=== PATIENT | male | born 1955 | race Caucasian/White ===

== ENCOUNTER 2018-10-21 08:38 | Outpatient (REF) | payer BC, SELFPAY ==
[2018-10-23 12:21] LABS: Lyme Ab w Rflx to Lyme Confirm Negative
== END 2018-10-21 08:58 ==
LOC: NCHCN 08:38
PROVIDERS: Visit Provider Nurse Practitioner Family
DX: A93.8 Other specified arthropod-borne viral fevers (principal)
CPT/HCPCS: 86618

== ENCOUNTER 2019-07-17 16:27 | Outpatient (REF) | payer BC, SELFPAY ==
[2019-07-17 19:13] LABS: Anion Gap 9.4 mmol/L (3-11); BUN 24 mg/dL (7-18); CO2 25.6 mmol/L (21.0-32.0); CREATININE 1.18 mg/dL (0.70-1.30); Calcium 8.7 mg/dL (8.5-10.1); Chloride 104 mmol/L (98-107); Glucose 156 mg/dL (70-100); Sodium 139 mmol/L (136-145)
== END 2019-07-17 16:47 ==
LOC: NCHCN 16:27
PROVIDERS: Visit Provider Nurse Practitioner Family
DX: I10 Essential (primary) hypertension (principal)
CPT/HCPCS: 80048

== ENCOUNTER → 2022-08-30 08:49 | Outpatient (BNVA) | payer MEDICARE, SELFPAY | PROVIDERS: PCP Physician Assistant; Referring Provider Physician Assistant; Visit Provider Surgery | DX: K46.9 Unspecified abdominal hernia without obstruction or gangrene (principal) | CPT/HCPCS: 99203 ==

== ENCOUNTER 2022-10-20 06:18 | Day surgery (SDC) | payer MEDICARE, SELFPAY ==
--- NOTE | 2022-10-19 17:05 | W.ANESPRE ---
General Info Date of Service Date Performed: 10/20/22 Height: 6 ft Weight: 102.51 kg Body Mass Index (BMI): 30.6 Surgical Procedure: Operation Date: 10/20/22 07:40 Proposed Procedure Side Surgeon p Herniorrhaphy Umbilical w/Mesh Rui Cifuentes MD Meds Allergies and Home Medications Allergies Allergy/AdvReac Type Severity Reaction Status Date / Time No Known Allergies Allergy Verified 10/20/22 06:34 Home Medication Medication Instructions Recorded lisinopril 5 mg tablet 5 mg PO DAILY 08/16/22 sildenafil 100 mg tablet (Viagra) 100 mg PO PRN PRN 08/16/22 tramadol 50 mg tablet 50 mg PO BID PRN #6 tabs 10/20/22 Current Visit Medications: Current Medications Generic Name Dose Route Start Last Admin Trade Name Freq PRN Reason Stop Dose Admin Acetaminophen 1,000 mg 10/20/22 06:00 Acetaminophen 500 Mg Tab PO 11/18/22 23:59 PREOP KAILASH Celecoxib 200 mg 10/20/22 06:00 Celecoxib 200 Mg Cap PO 11/18/22 23:59 PREOP KAILASH Gabapentin 300 mg 10/20/22 06:00 Gabapentin 300 Mg Cap PO 11/18/22 23:59 PREOP [facility] Ringer's Solution 1,000 mls @ 80 mls/hr 10/20/22 06:00 IV 11/18/22 23:59 INFUSION [facility] IV Miscellaneous Supplies 1 each 10/20/22 06:00 Iv Access IV 11/18/22 23:59 DIRECTED KAILASH Sodium Chloride 0 ml 10/20/22 06:00 Normal Saline Flush 10 Ml Syr IV 11/18/22 23:59 PRN PRN Sodium Chloride 0 ml 10/20/22 06:00 Normal Saline 10 Ml Vial IJ 11/18/22 23:59 DIRECTED PRN Sterile Water 0 ml 10/20/22 06:00 Water,Injection,Sterile 10 Ml Vial IJ 11/18/22 23:59 DIRECTED PRN PFSH Active Problems Active Problems: Problem Status Onset Code Hyperlipidemia E78.5 Hypertension I10 Erectile dysfunction N52.9 Umbilical hernia K42.9 Medical History Medical History DJD of left AC (acromioclavicular) joint Elbow pain Ganglion cyst of dorsum of left wrist Tick bite Surgical History Surgical History History of colonoscopy (~2010) Tobacco Smoking/Tobacco Use Status: Former Tobacco Use Alcohol Alcohol Intake: current Alcohol intake frequency: 3 or more drinks per day Alcohol type: beer Substance Use Substance use: Socially Substance use type: does not use and marijuana Vital Signs and Lab Results Vital Signs Most Recent Vital Signs in EMR: Temp Pulse Resp BP Pulse Ox 36.7 C 57 L 16 130/83 98 10/20/22 06:38 10/20/22 06:38 10/20/22 06:38 10/20/22 06:38 10/20/22 06:38 Lab Results Blood Type / Crossmatch: No Data to Display Complete Blood Count: No Data to Display Complete Metabolic Panel: No Data to Display Liver Function Panel: No Data to Display Coagulation Panel: No Data to Display Cardiac Panel: No Data to Display Arterial Blood Gas: No Data to Display Venous Blood Gas: No Data to Display Pancreas Panel: No Data to Display Thyroid Panel: No Data to Display Infectious Disease: No Data to Display Blood Cultures: No Data to Display Toxicology Panel: No Data to Display Anesthesia Assessment and Plan Anesthesia History Personal History: No History of Anesthesia Complications Family History: No Family History of Anesthesia Complications Exercise Tolerance Exercise Tolerance: Metabolic Equivalents>4 Cardiac & Pulmonary Exam Cardiac Exam: Normal S1/S2 Heart Sounds Pulmonary Exam: Clear Bilateral Breath Sounds Implantable Cardiac Device Does patient have a Pacemaker or an ICD?: No Airway Exam Known Difficult Airway: No Mallampati Class: 3 Mouth Opening: Narrow (< 3cm) Thyromental Distance: Greater than 3 cm Neck Range of Motion: Limited ROM Neck Circumference: Thick Teeth Condition: Normal Dentition ASA Classification ASA Score: ASA 2 Emergency Case?: No NPO Status NPO Status: NPO Clears >2 hours, Solids >8 hours Anesthesia Plan Resuscitation Status: Full Code Anesthesia Technique: General Anesthesia Airway Planned: LMA Pain Management: Surgeon and patient request nerve block Monitors Used: Standard Monitors Preoperative Comments:: 67 yo male for umbilical hernia repair. Sig PMHX: HTN (lisinopril), former smoker, daily EtOH (4 zoya beers/day), occ cannabis, denies any other major. Previous Anes: none on file here. Plan: GA/LMA, bilateral RS block. Preop gabapentin/acetaminophen/celecoxib (ordered by lonnie)
--- NOTE | 2022-10-19 20:19 | W.PREOPHP ---
Assessment and Plan Assessment and plan (1) Umbilical hernia: Status: Acute Assessment and plan: Hernia repair today History of Present Illness History of Present Illness Chief Complaint: Umbilical hernia Narrative: He is 67 years old, he first noticed it several years ago.? He does not recall any specific event when he first appreciated it.? It does not bother him very much, but he has noticed that it is increased in size over the past year or so.? He denies any obstructive symptoms, or changes in the overlying skin. PFSH All Active Problems Hyperlipidemia (Acute) Hypertension (Chronic) Erectile dysfunction (Acute) Umbilical hernia (Acute) Medical History DJD of left AC (acromioclavicular) joint Elbow pain Ganglion cyst of dorsum of left wrist Tick bite Surgical History History of colonoscopy (~2010) Social History Smoking/Tobacco Use Status: Former Tobacco Use Quit Date: 11/05/17 Smoking risk assessment performed?: Yes Alcohol Intake: current Alcohol Intake frequency: 3 or more drinks per day Alcohol type: beer Drug use: Socially Substance use type: marijuana Current gender identity: male Do you feel safe at home: Yes Do you feel safe in your relationship?: Yes Meds Allergies and Home Medications Allergies Allergy/AdvReac Type Severity Reaction Status Date / Time No Known Allergies Allergy Verified 10/20/22 06:34 Home Medications Medication Instructions Recorded Confirmed Type lisinopril 5 mg tablet 5 mg PO DAILY 08/16/22 10/20/22 History sildenafil 100 mg tablet (Viagra) 100 mg PO PRN PRN 08/16/22 10/20/22 History Exam Const General: cooperative, healthy appearing and comfortable Orientation: awake and oriented x3 Eyes General: appearance normal, both eyes and all related structures Conjunctivae: conjunctivae normal Sclera: sclerae normal Resp Effort & Inspection: normal respiratory effort and able to speak in complete sentences Auscultation: clear to auscultation bilaterally Cardio Jugular venous pressure: no JVD Rate: regular rate Rhythm: regular rhythm Heart Sounds: S1 normal and S2 normal GI Inspection: non-distended Palpation: soft, no guarding, hernia umbilical and nontender Auscultation: normal bowel sounds Skin General skin exam: normal turgor Neuro General: patient alert, patient awake and patient oriented x3 Cognition: normal cognition Extrem Right lower extremity: no edema Left lower extremity: no edema
--- NOTE | 2022-10-19 20:28 | PDOC.DSDIS_ITS ---
Date of service: 10/20/22 Time of Service: 08:19 Discharge Plan Disposition Patient Disposition: Home Condition: Good Discharge Details Reason For Visit: Umbilical hernia repair Attending Provider: Rui Cifuentes Primary Care Provider: Bev Rm Home Meds and New Rx's Prescriptions: New tramadol 50 mg tablet 50 mg PO BID PRNQty: 6 0RF Rx Instructions: Take one tablet by mouth 2 times per day if needed for severe pain Continued sildenafil [Viagra] 100 mg tablet 100 mg PO PRN PRN Rx Instructions: administer 30 minutes to 4 hours before activity lisinopril 5 mg tablet 5 mg PO DAILY Discharge Instructions Instructions: Umbilical Hernia (DC) Additional Instructions: 1. Resume all of your medications. 2. Okay to use tylenol and ibuprofen over the counter as needed. 3. Use tramadol as needed for pain. 4. Okay to use ice packs or heating pads for your comfort. 5. Leave bandage in place for 24 hours, then remove. 6. Shower with warm soapy water. Pat dry. Use a bandaid if needed to protect your clothing. 7. No soaking or tub baths until I see you in the office. 8. No heavy lifting until I see you in the office. 9.Call the office (or go directly to the emergency room after hours) if you notice any of the following: Develop chills (warm to touch), or if you have a thermometer and your temperature is above 101 Difficulty breathing or difficultly swallowing Persistent vomiting Any bleeding ? exceeding one tablespoon 10. Call your physician if the site where your intravenous was started becomes red, swollen, painful, and warm to touch. Referrals: Rui Cifuentes MD [ [facility] STAFF PHYSICIAN] - (10-14 days for routine follow up) Activity:: No heavy lifting Remove Dressings/Wound Care:: 24 hours Shower/Bathe:: 24 hours Diet:: As Tolerated Discharge Orders Discharge Orders: Discharge Order (Routine); Ordered 10/19/22 Ordered By: Rui Cifuentes DS: Diagnosis Discharge Diagnosis (1) Umbilical hernia: Status: Acute Asessment and Plan: We fixed the hernia with a permanent mesh Avoid heavy lifting until we can check your surgical site in the office.
--- NOTE | 2022-10-19 20:36 | W.PM.OP ---
Date of service: 10/20/22 Time of Service: 08:20 Operative Note Operative Note DATE OF PROCEDURE: 10/20/22 PRE-OP DIAGNOSIS: Umbilical hernia POST-OP DIAGNOSIS: same PROCEDURE: Open umbilical hernia repair with mesh SURGEON: Rui Cifuentes SENIOR COMMISSARY AGENT: Anastasia Kaur ANESTHESIA TYPE: Local By Surgeon, General LMA/ETT and Other (TAP blocks) Refer to Anesthesia Record ESTIMATED BLOOD LOSS: 20 COMPLICATIONS: None Patient was transported to: PACU Patient's condition: stable Implants: Bard 4.3 cm Ventralex hernia mesh Indications: Incarcerated umbilical hernia Procedure Description: I began by prepping and draping the anterior abdominal wall in the usual fashion. Next, I made a semilunar infraumbilical incision and dissected down to the level of the fascia. I then turned the dissection slightly cephalad, in order to completely skeletonize the fascial ring at the umbilicus. There was an omental containing hernia that was easily reduced back into the peritoneal cavity. Having dissected out the undersurface of the umbilical fascia, I used a Bard Ventralex ST 4.3 cm hernia patch to obliterate the defect. I delivered the patch into the subfascial position, and I affixed it to the fascia with interrupted stitches. Next, I closed the fascial defect proper over the mesh in a horizontal fashion. I then irrigated the surgical field, used an interrupted Vicryl stitch to pexied the underside of the umbilicus down onto the fascia, and approximated the deep skin tissues with interrupted Vicryl's. The skin was closed with a running subcuticular suture. Bandages were applied, the patient was awakened from anesthesia and transferred to the recovery unit.
[2022-10-20] VITALS (11 sets, daily range): BP systolic 87–130; BP diastolic 54–83; PULSE 48–66; RESP 14–19; TEMP 36.1–36.7; O2SAT 92–98; BMI 30.6
[2022-10-20] MEDS: Acetaminophen 500 MG TAB 1000 MG PO (07:03)
[2022-10-20] MEDS: Gabapentin 300 MG CAP PO (07:04)
[2022-10-20] MEDS: Celecoxib 200 MG CAP PO (07:04)
[2022-10-20] MEDS: Lactated Ringers 1,000 ML 80 ML IV (07:17)
[2022-10-20] MEDS: ceFAZolin 2 GM/50 ML BAG IVPB (07:30)
--- NOTE | 2022-10-20 07:46 | W.ANESNERVE ---
Nerve Block Single Injection Procedure Date and Time Date Performed: 10/20/22 Procedure Start: 07:35 Location Where Procedure Performed Procedure Location: Operating Room Procedure Stop: 07:40 Reason Performed: Postoperative Analgesia Requesting Provider: Rui Cifuentes Timeout Performed Timeout Performed: Yes Monitoring Used ECG, Blood Pressure and SpO2 Sterility Sterility: Hand Hygiene, Surgical Cap, Surgical Mask, Sterile Gloves and Chlorhexidine Sedation Given During Procedure Sedation Given (Indicate Dose Given): No Sedation given Patient Mental Status Patient Mental Status: Performed under general anesthesia Nerve Block 1st Nerve Block: Laterality: Bilateral Block Type: Rectus Sheath (Bilateral) Needle / Catheter Used: 100mm SonoPlex II Local Anesthetic Bolus (Indicate Dose Given): Half of Total block solution given into each side and Bupivacaine 0.375% Dose:: 30 mL Additives (Indicate Dose Given): Epinephrine to make 1:400,000 (2.5mcg/ml) Dose:: 75 mcg and Precedex Dose:: 50 mcg Ultrasound: Sterile probe cover and gel used Ultrasound Image Saved?: Yes Nerve Stimulator: Not Used Paresthesia: None Procedure Tolerated: No Complications Procedure Outcome: Successful Performed By: Wil Reyes
[2022-10-20] MEDS: Bupivacaine 0.25% Pres-Free W/EPI 30 ML VIAL (07:47)
--- NOTE | 2022-10-20 08:52 | W.ANESPOSTOP ---
Postoperative Evaluation Date, Time and Location Date Performed: 10/20/22 Time Performed: 08:52 Patient Location: Day Surgery Unit Vital Signs Most Recent Imported Vital Signs: Most Recent Vital Signs Temp Pulse Resp BP Pulse Ox 36.4 C L 52 L 14 90/64 L 94 10/20/22 08:45 10/20/22 08:45 10/20/22 08:45 10/20/22 08:45 10/20/22 08:45 Pain Score Most Recent Pain Score: Most Recent Pain Score Pain Level 0 10/20/22 08:45 Assessment Mental Status: Arousable with meaningful communication Airway and Respiratory Function: Patent airway with normal (patient baseline) respiratory exam Cardiovascular Function: Hemodynamically Stable Hydration Status: Adequately Hydrated Nausea & Vomiting: No Nausea or Vomiting Pain: Pain is tolerable per patient Peripheral Nerve Block: Regional nerve block not resolved at time of post operative discharge
[2022-10-20] MEDS: traMADol 50 MG TAB PO (09:55)
== END 2022-10-20 11:05 | disposition home or self-care (01) ==
PROVIDERS: PCP Physician Assistant; Visit Provider Surgery
PROC: (CPT 49585; principal; 2022-10-20 07:30)
DX: K42.9 Umbilical hernia without obstruction or gangrene (principal); I10 Essential (primary) hypertension; E78.5 Hyperlipidemia, unspecified
CPT/HCPCS: 49585; 76942; C1781; J0171; J0690; J1100; J1885; J2405; J2704

== ENCOUNTER → 2022-11-01 08:22 | Outpatient (BNVA) | payer MEDICARE, SELFPAY | PROVIDERS: PCP Physician Assistant; Referring Provider Physician Assistant; Visit Provider Surgery | DX: Z48.817 Encounter for surgical aftercare following surgery on the skin and subcutaneous tissue (principal) ==

== ENCOUNTER → 2022-12-08 10:20 | Outpatient (BNVA) | payer MEDICARE, SELFPAY | PROVIDERS: PCP Physician Assistant; Referring Provider Physician Assistant; Visit Provider Surgery | DX: K62.5 Hemorrhage of anus and rectum (principal); K42.9 Umbilical hernia without obstruction or gangrene | CPT/HCPCS: 99213 ==

== ENCOUNTER 2023-01-26 16:00 | Outpatient (REF) | payer MEDICARE, SELFPAY ==
[2023-01-26 20:37] LABS: ALT 32 U/L (16-63); AST 23 U/L (15-37); Albumin 4.1 g/dL (3.4-5.0); Alkaline Phosphatase 73 U/L (46-116); Anion Gap 6.4 mmol/L (3-11); BUN 19 mg/dL (7-18); Bilirubin, Total 1.3 mg/dL (0.2-1.0); CO2 28.6 mmol/L (21.0-32.0); CREATININE 1.2 mg/dL (0.70-1.30); Calcium 9.2 mg/dL (8.5-10.1); Chloride 104 mmol/L (98-107); Estimated GFR 65.87 (mL/min/1.73m2); Glucose 118 mg/dL (74-106); LDL CHOLESTEROL 91 mg/dL (<100); Potassium 3.9 mmol/L (3.5-5.1); Sodium 139 mmol/L (136-145); Total Protein 7.3 g/dL (6.4-8.2)
== END 2023-01-26 16:01 | disposition home or self-care (01) ==
LOC: NCHCN 16:00
PROVIDERS: PCP Physician Assistant; Visit Provider Physician Assistant
DX: I10 Essential (primary) hypertension (principal); E78.5 Hyperlipidemia, unspecified
CPT/HCPCS: 80053; 83721

== ENCOUNTER 2023-04-20 10:44 | Day surgery (SDC) | payer MEDICARE, SELFPAY ==
--- NOTE | 2023-04-19 16:06 | HPE_ITS ---
Date of service: 04/20/23 Time of Service: 13:43 Assessment and Plan Assessment and plan (1) Screening for colon cancer: Status: Acute (2) Rectal hemorrhage: Status: Acute Assessment and plan: Plan: Colonoscopy w/ general & natural airway. -Also planning on doing a hemorrhoid banding if internal hemorrhoids are present. risks: bleeding/infection/pain/recurrence/fistulas/abscess. -stopped taking metamucil Informed consent is obtained for the procedural (explained in simple layman's terms that?the pt and/or family could understand) explaining risks vs benefits and alternatives to the procedure and consequences if we do not do the procedure and need/rational for the procedure. Risks include but are not limited to: bleeding, infection, perforation of colon.? This would necessitate emergency surgery to repair the damage w/ possible ostomy; and other associated complications w/ the required surgery. ? Also complications of anesthesia including aspiration, RI/CVA/, inability to complete the procedure. I discussed with the?patient would they could expect during the procedure, post procedure and recovery time and risks.? The patient understands that they need to have a ride home after the procedure.? The patient was given all this information in writing and expressed understanding. If there are any questions or concerns please feel free to contact our office.? Generally Colonoscopy does not require antibiotics prophylaxis, (3) Hyperlipidemia: Status: Acute (4) Hypertension: Status: Chronic History of Present Illness Narrative: 04/20/23: Patient is here today for colonoscopy for rectal bleeding.??? They completed a bowel prep with just a clear yellow residual effluent.? They not having any chest pain or shortness of breath, currently.? They are not experiencing any fever or chills.? They deny any productive cough or upper respiratory tract infection signs or symptoms.? They are not having abdominal pain, or nausea and vomiting.? They have not had any changes in medications, past medical history or past surgical history since previously being seen in the office. They have not had any accidents or have been in the ER since the clinic pre-operative evaluation. ??I reviewed the procedure with the patient today, including risks and benefits of the procedure, and what they could expect at home for recovery.? All questions are answered to the patient?s satisfaction today, and they are stable to proceed with the proposed procedure. Clinic appt 12/08/22: RN:?Pt is referred by his PCP CHAVEZ Dhillon for 2 days of rectal bleeding of which she started him on metamucil and his bleeding stopped, he has not had any more episodes since.? Pt is scheduled in April for his 10 year colonoscopy, last one was at [facility] in [place] and pt reports normal.? Pt denies family history of colon cancer. ?There is no family history of any colon cancer.? Pt has not had any unexplained weight loss.? Their appetite is good.? ?They deny heart, lung, or kidney problems. They are not having heartburn or indigestion. They have not had any prior colo-rectal surgery.? The patient? has not had a prior prostate Sx.? They deny any problems with anesthesia in the past. They did a POC hgb=15. Pt had? BRBPR x2 days.? Started as light blood, than got darker. 11/15-11/16. ? Denies any constipation or straining.? He Denies trauma.? He denies any unusual or differ foods/activities.? He had this Happen a one other time,a long time ago.? It Stoppedon it's own as well.? He has since Started on Metamucil and got better.? He only took the Metamucil for 2 or 3 weeks, then he stopped taking it. ? He has never had problems w/ hemorrhoids in the past to the best of his knowledge.? His Last CE? was 10 yrs ago.? It was nl per pt. ? No problems w/ prep or anesthesia.? Last time he saw his PCP they only did a [id number] hemoglobin.? They did not do a full CBC.? He does have a yearly physical scheduled with his PCP in the next 2 weeks and they usually do complete blood work at that time.? I would ask him to have that blood work faxed to our office. Patient had a umbilical hernia repaired on 11/01.? This occurred in the mid part of November.? He denies taking any narcotics while the bleeding was ongoing.? He does note he was taking ibuprofen regularly while the bleeding was ongoing.? He has since stopped taking daily ibuprofen.? He was not having any pain in the abdomen or in his rectum while the bleeding was occurring.? No pain with bowel movements.? Anesthesia: general (without airway) Previous surgical intolerances: No Previous surgical complications: No Pulmonary risk factors: Date of surgery: Planned procedure: Yes Sleep apnea risks: No COPD/Asthma/Smoker:? quit 15 yrs ago.? no JOANNA. Can climb one flight of stairs (12-13 steps) in less than 30 seconds without stopping and without symptoms: Yes? ? walks 2 miles a day.? The surgery proposed for this patient is: low risk Active cardiac conditions: none Active risk factors: none ASA (acetylsalicylic acid): not used Beta blockers: not used Kidneys: no concerns DM:no THC- 2-3/week.? Review of Systems All systems reviewed & are unremarkable except as noted in HPI and below PFSH All Active Problems Screening for colon cancer (Acute) Rectal hemorrhage (Acute) Hyperlipidemia (Acute) Hypertension (Chronic) Erectile dysfunction (Acute) Medical History DJD of left AC (acromioclavicular) joint Elbow pain Ganglion cyst of dorsum of left wrist Tick bite Surgical History History of colonoscopy (~2010) History of umbilical hernia repair (~10/20/22) Social History Smoking/Tobacco Use Status: Former Tobacco Use Quit Date: 11/05/02 Smoking risk assessment performed?: Yes Alcohol Intake: current Alcohol Intake frequency: 3 or more drinks per day Alcohol type: beer Drug use: Socially Substance use type: marijuana Current gender identity: male Do you feel safe at home: Yes Do you feel safe in your relationship?: Yes Meds Allergies and Home Medications Allergies Allergy/AdvReac Type Severity Reaction Status Date / Time No Known Allergies Allergy Verified 04/20/23 11:05 Home Medications Medication Instructions Recorded Confirmed Type lisinopril 5 mg tablet 5 mg PO DAILY 08/16/22 04/20/23 History sildenafil 100 mg tablet (Viagra) 100 mg PO PRN PRN 08/16/22 04/20/23 History atorvastatin 20 mg tablet (Lipitor) 20 mg PO DAILY 11/30/22 04/20/23 History Exam Narrative Exam Narrative: PHYSICAL EXAM GENERAL APPEARANCE: Alert, healthy appearance, oriented, x 3,? in no acute distress HYDRATION: Well hydrated HEAD, EYES, EARS, NECK, THROAT: Head is normocephalic, pupils equal, round, reactive to light and accommodation, ocular movement intact, sclera clear and no jaundice. ?Dentition intact. LUNGS: normal respiration/normal chest excursion. ?Clear to auscultation bilaterally. ?No wheeze. ?HEART: Regular rate and rhythm. no murmurs EXTREMITY: No edema or cyanosis.? no leg pain, redness, swelling.? ABDOMEN: soft and non-tender to palpation.? Normal bowel sounds.? CBC No Data to Display Comprehensive Metabolic Panel Sodium 139 mmol/L (136-145) 01/26/23 15:05 Potassium 3.9 mmol/L (3.5-5.1) 01/26/23 15:05 Chloride 104 mmol/L (98-107) 01/26/23 15:05 Carbon Dioxide 28.6 mmol/L (21.0-32.0) 01/26/23 15:05 BUN 19 mg/dL (7-18) H 01/26/23 15:05 Creatinine 1.2 mg/dL (0.70-1.30) 01/26/23 15:05 Estimated GFR/1.73 m2 >= 60.00 (mL/min/1.73m2) 07/17/19 15:10 Glucose 118 mg/dL (74-106) H 01/26/23 15:05 Calcium 9.2 mg/dL (8.5-10.1) 01/26/23 15:05 Total Bilirubin 1.3 mg/dL (0.2-1.0) H 01/26/23 15:05 ALT 32 U/L (16-63) 01/26/23 15:05 AST 23 U/L (15-37) 01/26/23 15:05 Alkaline Phosphatase 73 U/L (46-116) 01/26/23 15:05 Total Protein 7.3 g/dL (6.4-8.2) 01/26/23 15:05 Albumin 4.1 g/dL (3.4-5.0) 01/26/23 15:05 Diabetes results Glucose 118 mg/dL (74-106) H 01/26/23 Total Cholesterol 169 mg/dL (50-200) 04/02/18 LDL Cholesterol Direct 91 mg/dL (<100) 01/26/23 HDL Cholesterol 37 mg/dL (40-60) L 04/02/18 Triglycerides 183 mg/dL (30-150) H 04/02/18 BUN 19 mg/dL (7-18) H 01/26/23 Creatinine 1.2 mg/dL (0.70-1.30) 01/26/23 Estimated GFR/1.73 m2 >= 60.00 (mL/min/1.73m2) 07/17/19 Est GFR (CKD-EPI 2020) 65.87 (mL/min/1.73m2) 01/26/23 Sodium 139 mmol/L (136-145) 01/26/23 Potassium 3.9 mmol/L (3.5-5.1) 01/26/23 Chloride 104 mmol/L (98-107) 01/26/23 Carbon Dioxide 28.6 mmol/L (21.0-32.0) 01/26/23 Calcium 9.2 mg/dL (8.5-10.1) 01/26/23 AST 23 U/L (15-37) 01/26/23 ALT 32 U/L (16-63) 01/26/23 Total Protein 7.3 g/dL (6.4-8.2) 01/26/23 Albumin 4.1 g/dL (3.4-5.0) 01/26/23 Lipid profile Total Cholesterol 169 mg/dL (50-200) 04/02/18 HDL Cholesterol 37 mg/dL (40-60) L 04/02/18 LDL Cholesterol Direct 91 mg/dL (<100) 01/26/23 Triglycerides 183 mg/dL (30-150) H 04/02/18 Stool tests (SJP) No Data to Display Time Spent Time spent with Patient: <40 minutes Time was spent: preparing to see the patient(eg.review tests), obtaining and/or reviewing separately otained hiistory, ordering medications,tests, procedures, referring, communicating with other health direct care provider, indepentently interpreting results and counseling the patient
--- NOTE | 2023-04-19 16:07 | PDOC.DSDIS_ITS ---
Date of service: 04/20/23 Time of Service: 14:20 Discharge Plan Disposition Patient Disposition: Home Discharge Details Reason For Visit: colon scope Attending Provider: Kiya Stinson Primary Care Provider: Bev Rm Home Meds and New Rx's Prescriptions: Continued sildenafil [Viagra] 100 mg tablet 100 mg PO PRN PRN Rx Instructions: administer 30 minutes to 4 hours before activity lisinopril 5 mg tablet 5 mg PO DAILY atorvastatin [Lipitor] 20 mg tablet 20 mg PO DAILY Discontinued bisacodyl 5 mg tablet,delayed release (DR/EC) 5 mg PO ONCE Qty: 4 0RF Rx Instructions: Per Colonoscopy bowel prep instructions polyethylene glycol 3350 17 gram/dose powder 238 g PO ONCE Qty: 238 0RF Rx Instructions: For Colonoscopy bowel prep, as directed by office Discharge Instructions Additional Instructions: [facility] Colonoscopy Post- Op Instructions Instructions for Everyone who is given Anesthesia: For your safety, please do the following for the next twenty-four (24) hours: *Do Not operate a motor vehicle (car, truck, motorcycle, etc.) *Do Not drink alcoholic beverages or use any recreational drugs for the first 24 hours or while taking pain medications. The medications in your body may have a reaction that can be dangerous. *Do Not make any important decisions or sign any important papers. Findings: moderate diverticula Follow up: No further colonoscopies required. 1. No lifting over 20 pounds or strenuous activity for the first 24 hours after your procedure. After 24 hours there are no restrictions on your activity but you may feel fatigued for a few days. 2. After you arrive home you may have a light meal and return to your normal diet as you can tolerate it without feeling sick to your stomach. 3. You may have a bloated, gaseous feeling in your belly (abdomen) after a colonoscopy. Passing gas and belching will help. Walking or lying down on your left side with your knees flexed may relieve the discomfort. Call the office at [phone] (Office) or [phone] (Hospital) right away if you notice any of the following: a.Vomiting of blood or ?coffee ground stools?. b.Rectal bleeding 1Tbsp, blood clots or continuous bleeding. c.Severe belly (abdominal) pain. d.A hard distended belly (abdomen) and an inability to pass gas. 4. Please don?t expect to have a normal BM (bowel movement) for 2-3 days after your procedure. 5. If there are questions regarding the findings of your procedure, please contact your doctor 6. If you are unable to contact your doctor with a problem, contact the hospital at [phone]. 7. Continue all your regular medications unless directed otherwise. Rubber Band Ligation for Hemorrhoids: What to Expect at Home Your Recovery In this procedure, a hemorrhoid was tied off at its base with rubber bands. You may feel pain and have a feeling of fullness in your lower belly. Or you may feel as if you need to have a bowel movement. This usually goes away within several days after the surgery. You may need pain medicine during this time. You may have a small amount of bleeding from your anus about 7 to 10 days after surgery, when your hemorrhoid falls off. This is normal. Some people are able to return to regular activities in 24 hours. Others may need 2 to 3 days of rest. You will need to avoid heavy lifting and straining with bowel movements for the next 5-7 days. This care sheet gives you a general idea about how long it will take for you to recover. But each person recovers at a different pace. Follow the steps below to get better as quickly as possible. How can you care for yourself at home? Activity ? Rest when you feel tired. Getting enough sleep will help you recover. ? Try to walk each day. Start by walking a little more than you did the day before. Bit by bit, increase the amount you walk. Walking boosts blood flow and helps prevent pneumonia and constipation. ? Avoid strenuous activities, such as bicycle riding, jogging, weight lifting, or aerobic exercise, until your doctor says it is okay. ? For 2 to 3 weeks, avoid lifting anything that would make you strain. This may include heavy grocery bags and milk containers, a heavy briefcase or backpack, cat litter or dog food bags, a vacuum mercury cell cleaner, or a child. ? You may take showers and baths as usual. Pat your anal area dry when you are done. ? Ask your doctor when you can drive again. ? You may need to take a few days to a few weeks off work. It depends on the procedure you had, the type of work you do, and how you feel. Diet ? You can eat your normal diet. If your stomach is upset, try eating bland, low-fat foods like plain rice, broiled chicken, toast, and yogurt. ? Drink plenty of fluids (unless your doctor has told you not to). ? It is important to eat high-fibre foods after your procedure. This will make it easier to have bowel movements and keep your hemorrhoids from coming back. ? You may notice that your bowel movements are not regular right after your procedure. This is common. Try to avoid constipation and straining with bowel movements. You may want to take a fibre supplement every day. If you have not had a bowel movement after a couple of days, ask your doctor about taking a mild laxative. Pain Control ? Your doctor will tell you if and when you can restart your medicines. He or she will also give you instructions about taking any new medicines. ? If you take aspirin or some other blood thinner, ask your doctor if and when to start taking it again. ? Take pain medicines ?as directed: Take tylenol 500 mg by mouth with food every 4 hours as needed for pain. Or ibuprofen 600 mg by mouth with food every 6 hours as needed for pain.? Do not take tylenol if you have a history of heavy drinking, hepatits C or liver problems.? Do not take ibuprofen if you have a history of stomach ulcers/problems, bleeding problem or kidney issues. If you think your pain medicine is making you sick to your stomach: o?? Take your medicine after meals (unless your doctor has told you not to). ? Sit in 5 to 10 inches palin of warm water (sitz bath) for 15 to 20 minutes 3 times a day and after bowel movements. Then pat the area dry. Do this as long as you have pain in your anal area. ? Put ice or a cold pack on the area for 10 to 20 minutes at a time. Try to do this every 1 to 2 hours for the next 3 days (when you are awake). Put a thin cloth between the ice and your skin. ? Support your feet with a small step stool when you sit on the toilet. This helps flex your hips and places your pelvis in a squatting position. This can make bowel movements easier after your procedure. ? When should you call for help? Call?911?anytime you think you may need emergency care. For example, call if: ? You passed out (lost consciousness). ? You are short of breath. Call your doctor or nurse advice line now?or seek immediate medical care if: ? You cannot pass stools or gas. ? You are sick to your stomach and cannot drink fluids. ? Bright red blood has soaked through the bandage. ? You have signs of a blood clot in your leg (called a deep vein thrombosis), such as: o?? Pain in the calf, back of your knee, thigh, or groin. o?? Redness and swelling in your leg or groin. ? You have signs of infection, such as: o?? Increased pain, swelling, warmth, or redness. o?? Red streaks leading from the area. o?? Pus draining from the area. o?? A fever. I understand the above instructions and have no questions. Signature of Patient or Adult Escort Name of Responsible Adult Escort Signature of Nurse Date/Time Activity:: see above Diet:: see above DS: Diagnosis Discharge Diagnosis (1) Screening for colon cancer: Status: Acute (2) Rectal hemorrhage: Status: Acute Asessment and Plan: The patient is seen and examined after their colonoscopy.? The patient has been able to pass gas.? They are not having abdominal pain.? They have been able to tolerate liquids and a snack.? They do not have any nausea or vomiting.? They are not having any chest pain or shortness of breath.??? They are not having any rectal bleeding. Their vital signs have been stable-see nursing notes. We discussed findings during their colonoscopy, and any biopsies that were done/polyps that were removed. The patient will be sent a letter with any biopsy results, and when to repeat the colonoscopy.-see discharge instructions. Patient was given explicit instructions to follow-up regarding colonoscopy-refer to discharge instructions.? We reviewed resumption of medications. Patient verbalized understanding and discharged in stable and satisfactory condition- See nursing notes. pt given instructions on hemorrhoid banding (3) Hyperlipidemia: Status: Acute (4) Hypertension: Status: Chronic
--- NOTE | 2023-04-19 16:16 | COLE_ITS ---
Date of service: 04/20/23 Time of Service: 14:30 Colonoscopy Report Date of procedure: 04/20/23 Pre-op diagnosis general: rectal bleeding Post-op diagnosis procedure note: other (diverticula/internal hemorrhoid) Surgeon: Kiya Stinson Anesthesia Type: General:No Airway Estimated blood loss (mL): 0 Pathology: none sent Complications: None Disposition: same day Prep: Miralax/Dulcolax Retraction Time: 11 Procedure Description: After informed consent was obtained the patient was taken to the procedure room and placed in a left decubitous position. Monitors were applied and a time out was done. The patients name, date of , procedure, allergies to medications and metal in their body was reviewed. The patient was then sedated. Once sedated and comfortable a rectal exam was done. External exam was normal. Inte rnal exam revealed a normal sphincter tone and no palpable masses. The scope was then introduced and retrofelexed. Grade I internal hemorrhoids were identified x1 column. The scope was then advanced to the cecum w/out difficulty. The TI and appendiceal orifice were identified. The prep was BBPS 3 in all segments for a total of 9. The scope was then slowly retracted over 11 minutes back into the rectum. There are no polyps or AVMs identified. He does have moderate small mouth diverticula confined to the sigmoid colon. There is no signs of active bleeding or infection.. The scope was removed and the patient was woken up and taken back to Same day surgery in stable condition. The patient tolerated the procedure well and there were no immediate complications. Follow up: No further colonscopy's are required, unless they develop changes in bowel habits or other new gastrointestinal complaints.
[2023-04-20 11:06] VITALS: BP 122/91; PULSE 58; RESP 18; TEMP 36.2; O2SAT 97
[2023-04-20] MEDS: Lactated Ringers 1,000 ML 80 ML IV (11:35)
--- NOTE | 2023-04-20 13:32 | W.ANESPRE ---
General Info Date of Service Date Performed: 04/20/23 Height: 6 ft Weight: 103.5 kg Body Mass Index (BMI): 30.9 Surgical Procedure: Operation Date: 04/20/23 12:35 Proposed Procedure Side Surgeon p Colonoscopy, possible biopsy Kiya Stinson DO Actual Procedure Side Surgeon p Colonoscopy, possible biopsy Not Applicable Kiya Stinson DO Pre-Op Diagnosis Post-Op Diagnosis colon scope Meds Allergies and Home Medications Allergies Allergy/AdvReac Type Severity Reaction Status Date / Time No Known Allergies Allergy Verified 04/20/23 11:05 Home Medication Medication Instructions Recorded lisinopril 5 mg tablet 5 mg PO DAILY 08/16/22 sildenafil 100 mg tablet (Viagra) 100 mg PO PRN PRN 08/16/22 atorvastatin 20 mg tablet (Lipitor) 20 mg PO DAILY 11/30/22 Current Visit Medications: Current Medications Generic Name Dose Route Start Last Admin Trade Name Freq PRN Reason Stop Dose Admin Hyoscyamine Sulfate 0.125 mg 04/20/23 04:17 Hyoscyamine 0.125 Mg Sl/Oral/Chew SL 05/20/23 04:16 DIRECTED PRN Ringer's Solution 1,000 mls @ 80 mls/hr 04/20/23 06:00 04/20/23 11:35 IV 05/19/23 23:59 80 mls/hr INFUSION KAILASH Administration IV Miscellaneous Supplies 1 each 04/20/23 06:00 Iv Access IV 05/19/23 23:59 DIRECTED KAILASH Ondansetron HCl 4 mg 04/20/23 04:17 Ondansetron 4 Mg/2 Ml Vial IVP 05/20/23 04:16 Q4H PRN PRN Nausea / Vomiting Sodium Chloride 0 ml 04/20/23 06:00 Normal Saline Flush 10 Ml Syr IV 05/19/23 23:59 PRN PRN Sodium Chloride 0 ml 04/20/23 06:00 Normal Saline 10 Ml Vial IJ 05/19/23 23:59 DIRECTED PRN Sterile Water 0 ml 04/20/23 06:00 Water,Injection,Sterile 10 Ml Vial IJ 05/19/23 23:59 DIRECTED PRN PFSH Active Problems Active Problems: Problem Status Onset Code Screening for colon cancer Z12.11 Rectal hemorrhage K62.5 Hyperlipidemia E78.5 Hypertension I10 Erectile dysfunction N52.9 Umbilical hernia K42.9 Medical History Medical History DJD of left AC (acromioclavicular) joint Elbow pain Ganglion cyst of dorsum of left wrist Tick bite Surgical History Surgical History History of colonoscopy (~2010) History of umbilical hernia repair (~10/20/22) Tobacco Smoking/Tobacco Use Status: Former Tobacco Use Alcohol Alcohol Intake: current Alcohol intake frequency: 3 or more drinks per day Alcohol type: beer Substance Use Substance use: Socially Substance use type: marijuana Vital Signs and Lab Results Vital Signs Most Recent Vital Signs in EMR: Most Recent Vital Signs Temp Pulse Resp BP Pulse Ox 36.2 C L 58 L 18 122/91 H 97 04/20/23 11:06 04/20/23 11:06 04/20/23 11:06 04/20/23 11:06 04/20/23 11:06 Lab Results Blood Type / Crossmatch: No Data to Display Complete Blood Count: No Data to Display Complete Metabolic Panel: No Data to Display Liver Function Panel: No Data to Display Coagulation Panel: No Data to Display Cardiac Panel: No Data to Display Arterial Blood Gas: No Data to Display Venous Blood Gas: No Data to Display Pancreas Panel: No Data to Display Thyroid Panel: No Data to Display Infectious Disease: No Data to Display Blood Cultures: No Data to Display Toxicology Panel: No Data to Display Anesthesia Assessment and Plan Anesthesia History Personal History: No History of Anesthesia Complications Family History: No Family History of Anesthesia Complications Exercise Tolerance Exercise Tolerance: Metabolic Equivalents>4 Pertinent Negatives Pertinent Negatives: No Symptoms of GERD, No Major Cardiovascular Symptoms or Complaints, No Major Pulmonary Symptoms or Complaints and No History of CVA/TIA Cardiac & Pulmonary Exam Cardiac Exam: Normal S1/S2 Heart Sounds Pulmonary Exam: Clear Bilateral Breath Sounds Implantable Cardiac Device Does patient have a Pacemaker or an ICD?: No Airway Exam Known Difficult Airway: No Mallampati Class: 3 Mouth Opening: Narrow (< 3cm) Thyromental Distance: Greater than 3 cm Neck Range of Motion: Limited ROM Neck Circumference: Thick Teeth Condition: Normal Dentition ASA Classification ASA Score: ASA 2 Emergency Case?: No NPO Status NPO Status: NPO Clears >2 hours, Solids >8 hours Anesthesia Plan Resuscitation Status: Full Code Anesthesia Technique: General Anesthesia Airway Planned: Natural Airway Monitors Used: Standard Monitors
[2023-04-20 13:33] VITALS: BMI 30.9
[2023-04-20 14:18] VITALS: BP 109/87; PULSE 75; RESP 18; TEMP 36.5; O2SAT 95
[2023-04-20] MEDS: Ketorolac 15 MG/ML VIAL IVP (14:47)
[2023-04-20 15:00] VITALS: BP 149/98; PULSE 62; RESP 18; TEMP 36.3; O2SAT 98
--- NOTE | 2023-04-20 15:27 | W.ANESPOSTOP ---
Postoperative Evaluation Date, Time and Location Date Performed: 04/20/23 Time Performed: 15:27 Patient Location: Day Surgery Unit Vital Signs Most Recent Imported Vital Signs: Most Recent Vital Signs Temp Pulse Resp BP Pulse Ox 36.5 C 75 18 109/87 95 04/20/23 14:18 04/20/23 14:18 04/20/23 14:18 04/20/23 14:18 04/20/23 14:18 Pain Score Most Recent Pain Score: Most Recent Pain Score Pain Level 0 04/20/23 14:18 Assessment Mental Status: Awake (Alert & Oriented to Patient Baseline) Airway and Respiratory Function: Patent airway with normal (patient baseline) respiratory exam Cardiovascular Function: Hemodynamically Stable Hydration Status: Adequately Hydrated Nausea & Vomiting: No Nausea or Vomiting Pain: Pt. Denies Any Pain Peripheral Nerve Block: Patient did not receive a nerve block
== END 2023-04-20 10:45 | disposition home or self-care (01) ==
PROVIDERS: PCP Physician Assistant; Visit Provider Surgery
PROC: 0DJD8ZZ Inspection of Lower Intestinal Tract, Via Natural or Artificial Opening Endoscopic (ICD-10-PCS; CPT 45378; principal; 2023-04-20 12:30)
DX: K62.5 Hemorrhage of anus and rectum (principal); I10 Essential (primary) hypertension; E78.5 Hyperlipidemia, unspecified; K64.0 First degree hemorrhoids; K57.30 Diverticulosis of large intestine without perforation or abscess without bleeding
CPT/HCPCS: 45378; J1885

== ENCOUNTER 2024-01-22 15:16 | Outpatient (REF) | payer OTHER, SELFPAY ==
[2024-01-22 20:15] LABS: ALT 32 U/L (16-63); AST 20 U/L (15-37); Alkaline Phosphatase 69 U/L (46-116); Anion Gap 11.7 mmol/L (3-11); BUN 20 mg/dL (7-18); Bilirubin, Total 1.3 mg/dL (0.2-1.0); CO2 25.3 mmol/L (21.0-32.0); CREATININE 1.1 mg/dL (0.70-1.30); Calcium 8.9 mg/dL (8.5-10.1); Chloride 105 mmol/L (98-107); Estimated GFR 72.67 (mL/min/1.73m2); Glucose 151 mg/dL (74-106); LDL CHOLESTEROL 101 mg/dL (<100); Potassium 3.8 mmol/L (3.5-5.1); Sodium 142 mmol/L (136-145); Total Protein 7.2 g/dL (6.4-8.2)
== END 2024-01-22 15:17 | disposition home or self-care (01) ==
LOC: NCHCN 15:16
PROVIDERS: PCP Physician Assistant; Visit Provider Physician Assistant
DX: E78.5 Hyperlipidemia, unspecified (principal); I10 Essential (primary) hypertension; Z12.5 Encounter for screening for malignant neoplasm of prostate
CPT/HCPCS: 80053; 83721; 84153

== ENCOUNTER 2025-02-05 17:09 | Outpatient (REF) | payer MEDICARE, SELFPAY ==
[2025-02-05 20:15] LABS: ALT 35 U/L (16-63); AST 24 U/L (15-37); Alkaline Phosphatase 71 U/L (46-116); Anion Gap 8.6 mmol/L (3-11); BUN 25 mg/dL (7-18); Bilirubin, Total 1.5 mg/dL (0.2-1.0); CO2 28.4 mmol/L (21.0-32.0); CREATININE 1.2 mg/dL (0.70-1.30); Calcium 9.3 mg/dL (8.5-10.1); Chloride 105 mmol/L (98-107); Estimated GFR 65.06 (mL/min/1.73m2); Glucose 193 mg/dL (74-106); Potassium 4.6 mmol/L (3.5-5.1); Sodium 142 mmol/L (136-145)
[2025-02-06 19:59] LABS: Hepatitis C Ab w Rflx HCV PCR Negative (Negative)
== END 2025-02-05 17:10 | disposition home or self-care (01) ==
LOC: NCHCN 17:09
PROVIDERS: PCP Physician Assistant; Visit Provider Physician Assistant
DX: I10 Essential (primary) hypertension (principal); Z11.59 Encounter for screening for other viral diseases
CPT/HCPCS: 80053; 86803